=== PATIENT | male | born 1985 | race Caucasian/White ===

== ENCOUNTER 2024-12-14 09:46 | Outpatient (REF) | payer MEDICAID, SELFPAY ==
--- OUTSIDE RECORDS SUMMARY | 2024-12-13 11:00 | XMS_ITS | Encounter Summary ---
Author Organization [employer] Address [address] [facility] 7t [place] [address] Care Team Providers Care Art Preparator Name Role Phone Vicki Yañez Primary Care Provider [phone] Mohamud Quigley RN Unavailable [phone] Stephanie Yen Unavailable Reason for Visit * Reason Comments Follow-up Encounter Details Date Type Department Care Team ([facility] st Contact Info) Description 12/13/2024 11:00 AM EDT Office Visit [facility] MED[facility]INE [address] [place], [place] [phone] Vicki Yañez FNP [address] [place], [place] [phone] Encounter for immunization Social History Tobacco Use Types Packs/Day Years Used Date Smoking Tobacco: Some Days Cigarettes Passive Smoke Exposure: Current Smokeless Tobacco: Current Alcohol Use Standard Drinks/Week Comments Not Asked 0 (1 standard drink = 0.6 oz pur e alcohol) 4 cans of bear per day Alcohol Answer Date Recorded How often do you have a drink containing alcohol ? 3 07/19/2024 How many drinks containing a lcohol do you have on a typical day when you are drinking? 0 07/19/2024 Frequency of Binge Drinking Not on file 09/2024 Depression Answer Date Recorded Patient Health Questionnaire-9 Score 19 08/21/2024 Patient Health Questionnaire-9 Score 08/21/2024 Last PHQ-9: Questionnaire Data Not on file 0 08/21/2024 Housing Stability Answer Date Recorded What is your housing situation today? I have jose r [place]wick 07/19/[address] you li ve. Do you have problems with any of the following? None of the above 07/19/2024 Food Insecurity Answer Date Recorded Within the past 12 months, y ou worried that your food would run out before you got money to buy more: Sometimes True 2024 Within the past 12 months,th e food you bought just didn't last and you didn't have enough money to get more: Sometimes True 09/05/2024 Transportation Answer Date Recorded In the past 12 months, has l ack of transportation kept you from medical appts, meetings, work or from getting things needed for daily living? Yes, it has kept me from medical appointments or getting medications. 09/05/2024 Intimate Partner Violence Answer Date R ecorded Within the last year, have y ou been afraid of your partner or ex-partner? 2 11/06/2024 Within the last year, have y ou been humiliated or emotionally abused in other ways by your partner or ex-partner? 2 Within the last year, have y ou been kicked, hit, slapped, or otherwise physically hurt by your partner or ex-partner? 2 11/06/2024 Within the last year, have y ou been raped or forced to have any kind of sexual activity by your partner or ex-partner? 2 11/06/2024 Utilities Answer Date Recorded In the past 12 months, has t he electric, gas, oil or water company threatened to shut off services in your home? No 07/19/2024 Depression Answer Date Recorded Patient Health Questionnaire-2 Score 4 08/21/2024 Internet Access Answer Date Recorded Internet Access Q1 Yes 07/19/2024 Internet Access Q2 Not on file 07/19/2024 Sex and Gender Information Value Date Recorded Sex Assigned at Male 07/14/2024 8:52 AM EDT Legal Sex Male 8:50 AM EDT Gender Identity Male 07/14/2024 8:52 AM EDT Sexual Orientation Don't know 07/14/2024 8: 52 AM EDT documented as of this encounter Last Filed Vital Signs Vital Sign Reading Time Taken Comments Blood Pressure 128/88 12/13/2024 11:14 AM EDT Pulse 70 12/13/2024 10:59 AM EDT Temperature - - Respiratory Rate 20 12/13/2024 10:59 AM EDT Oxygen Saturation 98% 12/13/2024 10:59 AM EDT Inhaled Oxygen Concentration - - Weight 98.2 kg (216 lb 6.4 oz) 12/13/2024 10:59 AM EDT Height 170.2 cm (5' 7 ) 12/13/2024 10:59 AM EDT Body Mass Index 33.89 12/13/2024 10:59 AM EDT documented in this encounter Plan of Treatment Not on file documented as of this encounter Visit Diagnoses Diagnosis Encounter for immunization documented in this encounter Additional Health Concerns Assessment Noted Time PHQ-9 Depression Total Score: 19 025 2:46 PM EDT documented as of this encounter Care Teams Art Preparator Relationship Specialty Start Date End Date Vicki Yañez FNP [address] [place] [id number] PCP - General Family Medicine 07/19/24 Mohamud Quigley, CLAYTON [address] [place] [address] Registered Nurse Family Medicine 09/05/24 Stephanie Yen 09/05/24 documented as of this encounter
--- OUTSIDE RECORDS SUMMARY | 2024-12-14 10:59 | XMS_ITS ---
Author Organization [employer] Address [address] [facility] [address] [place] [address] Care Team Providers Care Group Fitness Department Head Name Role Phone Otilio Vicki KOLBY Primary Care Provider [phone] Mohamud Quigley RN Unavailable [phone] Stephanie Yen Unavailable CHW Complex Status:Enrolled (Active) Start date:09/05/2024 Enrollment date:09/05/2024 Enrollment reason:Referred by provider Overview Provider Referral ( Aneta Chew) This patient might benefit from care management services. During IBH Consult Maxime presenting with depressed mood, Tearful, crying spells , hopelessness, irritable mood, loss of interests/pleasure , sense of isolation/loneliness , isolating, changes in sleep difficulty falling asleep, psychomotor retardation, fatigue/loss of energy, inappropriate/excessive guilt , indecisiveness, thought of harming himself; for a period of 0-6 mo, for most or all symptoms in the context of unable to identify significant stressors. Patient was seen for behavioral health follow up due to severe depressive symptoms and intermittent self-harm thoughts, particularly when is alone or feeling isolated. Reports persistent sadness, fatigue and insomnia about a month. Denies intent or plan to harm self, but acknowledges passive thoughts of self-harm as response to emotional distress and loneliness. Patient has a diagnosis of cerebral palsy, which contributes to social isolation, reduced independence, and physical limitations. Denies history of suicide attempts but acknowledges emotional dysregulation. Patient is accompanied by his father during brief encounter. On 08/19/24 patient visited [facility] for short term or acute insomnia. Per previous encounter on 08/21/24: Pt requested intervention due to experiencing intrusive thoughts of self-harm. Pt was in his house accompanied by his dad. Pt reports feeling like hurting himself when he is alone. No triggers associated with presentation of sxs per his report. Pt will request evaluation from crisis [facility] / [facility]. I provided contact information. Placed pt on 7 days crisis alert. Pt agreed with the plan. Plan: 1. Will follow up with PCP, specialist as scheduled, Care management for additional support in regards of disability support services, adaptive technology if possible. 2. Will follow up with [facility] as of today for psychotherapy and psychiatry. Recommended visit [address] [place] [address] site for same day care if needed. 3. Will follow up with referral to partial hospitalization for psychiatry evaluation if needed. 4. Will contact [facility], help line, visit ER when needed if symptoms worsen. Case Team Name Relationship Phone Stephanie Yen(Responsible Staff) [phone] Continued Care and Services Coordination
--- OUTSIDE RECORDS SUMMARY | 2024-12-14 10:59 | XMS_ITS | Encounter Summary ---
Author Organization [employer] Address [address] 7[address] [place] [address] Care Team Providers Care Child And Adolescent Psychologist Name Role Phone Vicki Yañez PSYCHOLOGY CLINICIAN Primary Care Provider [phone] Mohamud Quigley RN Unavailable [phone] Stephanie Yen Unavailable Encounter Details Date Type Department Care Team (Latest Contact Info) Description 12/13/2024 Travel Social History Tobacco Use Types Packs/Day Years [...] Score 19 08/21/2024 Patient Health Questionnaire-9 Score 19 08/21/2024 Last PHQ-9: Questionnaire Data Not on [...] the past 12 months, has t he [employer], gas, oil or water company threatened to [...] AM EDT documented as of this encounter Plan of Treatment Not on file documented as of this encounter Visit Diagnoses Not on filedocumented in this encounter Additional Health Concerns Assessment Noted Time PHQ-9 Depression Total Score: 19 025 2:46 PM EDT documented as of this encounter Care Teams Child And Adolescent Psychologist Relationship Specialty Start Date End Date Vicki Yañez FNP [address] [place] [address] PCP - General Family Medicine 07/19/24 Mohamud Quigley, CLAYTON [address] [place] [address] LUIS MANUEL Francois [address] Registered Nurse Family Medicine 09/05/24 Stephanie Yen 09/05/24 documented as of this encounter
--- OUTSIDE RECORDS SUMMARY | 2024-12-14 10:59 | XMS_ITS | Clinical Summary ---
Author Organization [facility] [employer] [facility] ity Address [address] [place] [address] Care Team Providers Care Armored Transport Service Manager Name Role Phone Unavailable Primary Care Provider Unavailabl e Social History Tobacco Use Types Packs/Day Years Used Date Smoking Tobacco: Never Assessed Sex and Gender Information Value Date Recorded Sex Assigned at Not on file Legal Sex Male 1:34 AM EST Gender Identity Not on file Sexual Orientation Not on file Plan of Treatment Health Maintenance Due Date Last Done Comments DTaP,Tdap,and Td Vaccines (1 - Tdap) 2002 Hepatitis B Vaccines (1 of 3 - 19+ 3-dose series) 2002 HPV Vaccines (1 - 3-dose SCD M series) 2010 Depression Screening 03/15/2024 COVID-19 Vaccine (1 - 2023-2 5 season) 2024 Influenza Vaccine (#1) 2024 RSV Immunization Adult Patie nts (1 - 1-dose 75+ series) 2058 HIB Vaccines Aged Out No longer eligi ble based on patient's age to complete this topic Hepatitis A Vaccines Aged Out No long er eligible based on patient's age to complete this topic IPV Vaccines Aged Out No longer eligi ble based on patient's age to complete this topic MMR Vaccines Aged Out No longer eligi ble based on patient's age to complete this topic Meningococcal ACWY Vaccine Aged Out N o longer eligible based on patient's age to complete this topic Meningococcal B Vaccine Aged Out No l onger eligible based on patient's age to complete this topic Pneumococcal Vaccine: Pediat rics (0 to 5 Years) and At-Risk Patients (6 to 49 Years) Aged Out No longer eligible b ased on patient's age to complete this topic RSV Immunization Patients Un loretta 20 months Aged Out No longer eligible b ased on patient's age to complete this topic Varicella Vaccines Aged Out No longer eligible based on patient's age to complete this topic
--- OUTSIDE RECORDS SUMMARY | 2024-12-14 10:59 | XMS_ITS | Encounter Summary ---
Author Organization [employer] Address [address] [facility] 7t [place] [address] Care Team Providers Care Supervisor Winding Department Name Role Phone Vicki Yañez Primary Care Provider [phone] Mohamud Quigley RN Unavailable [phone] Stephanie Yen Unavailable Reason for Visit * Reason Comments [facility] outreach Encounter Details Date Type Department Care Team (Latest Contact Info) Description 12/12/2024 Patient Outreach [facility] [address] [place] [address] Vicki Yañez FNP [address] [place] [address] Care Coordination (C3 KEERTHI Yen telephone call outreach) Social History Tobacco Use Types Packs/Day Years [...] AM EDT documented as of this encounter Progress Notes * Stephanie Yen - 12/12/2024 1:48 PM EDT CHW Stephanie Yen placed outbound call to patient introducing herself from [facility] CM Department, in regards to remind patient of appt for 12/13/24 @ 11:00 AM. Patient's name and was confirmed. Patient is aware and confirmed will be available and has no barriers on attending this appointment. Patient verbalized understanding and agrees with plan. documented in this encounter Plan of Treatment Not on file documented as of this encounter Visit Diagnoses Not on filedocumented in this encounter Additional Health Concerns Assessment Noted Time PHQ-9 Depression Total Score: 19 025 2:46 PM EDT documented as of this encounter Care Teams Supervisor Winding Department Relationship Specialty Start Date End Date Vicki Yañez FNP [address] [place] [address] PCP - General Family Medicine 07/19/24 oMhamud Quigley, RN [address] [place] [address] Registered Nurse Family Medicine 09/05/24 Stephanie Yen 09/05/24 documented as of this encounter
--- OUTSIDE RECORDS SUMMARY | 2024-12-14 10:59 | XMS_ITS ---
Author Organization [employer] Address [address] [facility] [address] 7[address] [place] [address] Care Team Providers Care Wool Merchant Name Role Phone Otilio Vicki CHILD CARE WORKER Primary Care Provider [phone] Mohamud Quigley RN Unavailable [phone] Stephanie Yen Unavailable CM Complex Status:Enrolled (Active) Start date:09/05/2024 Enrollment date:11/06/2024 Enrollment reason:Referred by provider Overview Provider Referral [...] during brief encounter. On 08/19/24 patient visited [facility] for short term or acute insomnia. Per [...] if possible. 2. Will follow up with [facility] as of today for psychotherapy and psychiatry. Recommended visit [address] [place] [address] site for same day care if needed. 3. Will follow up with referral to partial hospitalization for psychiatry evaluation if needed. 4. Will contact [facility], help line, visit ER when needed if symptoms worsen. Case Team Name Relationship Phone Mohamud Quigley RN(Responsible Staff) Registered N kurtis [phone] Continued Care and Services Coordination
--- OUTSIDE RECORDS SUMMARY | 2024-12-14 10:59 | XMS_ITS | Encounter Summary ---
Author Organization [employer] Address [address] [facility] 7t [place] [address] Care Team Providers Care Technical Buyer Name Role Phone Vicki Yañez Primary Care Provider [phone] Mohamud Quigley RN Unavailable [phone] Stephanie Yen Unavailable Reason for Visit * Reason Comments Med Refill Encounter Details Date Type Department Care Team (Late st Contact Info) Description 12/07/2024 Refill [facility] [address] [place] [address] Vicki Yañez FNP [address] [place] [address] Social History Tobacco Use Types Packs/Day Years [...] documented as of this encounter Care Teams Technical Buyer Relationship Specialty Start Date End Date Vicki Yañez FNP [address] [place] [address] PCP - General Family Medicine 07/19/24 Mohamud Quigley, RN [address] [place] [address] Registered Nurse Family Medicine 09/05/24 Stephanie Yen 09/05/24 documented as of this encounter
--- OUTSIDE RECORDS SUMMARY | 2024-12-14 10:59 | XMS_ITS | Clinical Summary ---
Author Organization [employer] Address [address] [facility] 7t [place] [address] Care Team Providers Care Nurse Extern Name Role Phone Bharat Yañezupe MARGIN CLERK Primary Care Provider [phone] Mohamud Quigley RN Unavailable [phone] Stephanie Yen Unavailable Allergies No known active allergies Medications * This document contains information received from the source organization and may not represent a complete record from that organization. Blood Pressure kit 1 Units 2 times daily. 1 kit 5 Active melatonin 3 MG tablet Take 1 tablet (3 mg) by mouth at bedtime. 90 tablet 5 Active traZODone (Desyrel) 50 MG tablet TAKE 1 TABLET(50 MG) BY MOUTH AT BEDTIME 30 tablet 5 Active traZODone (Desyrel) 50 MG tablet Take 1 tablet (50 mg) by mouth at bedtime. 30 tablet 5 12/12/19 25 Discontinued Active Problems Problem Noted Date Diagnosed Date Exercise counseling 07/22/2024 Dietary counseling 07/22/2024 Severe episode of recurrent major depressive disorder, without psychotic features (CMS/HCC) 07/22/2024 Assessment & Plan (08/21/2024 4:38 PM EDT): During IBH Consult Maxime presenting with depressed mood, Tearful, crying spells , hopelessness, irritable mood, loss of interests/pleasure , sense of isolation/loneliness , isolating, changes in sleep difficulty falling asleep, psychomotor retardation, fatigue/loss of energy, inappropriate/excessive guilt , indecisiveness, thought of harming himself; for a period of 0-6 mo, for most or all symptoms in the context of unable to identify significant stressors. Pt requested intervention due to experiencing intrusive thoughts of self-harm. Pt was in his house accompanied by his dad. Pt reports feeling like hurting himself when he is alone. No triggers associated with presentation of sxs per his report. Pt will request evaluation from crisis [facility] / [facility]. I provided contact information. Placed pt on 7 days crisis alert. Pt agreed with the plan. Cerebral palsy 07/19/2024 Encounter for adult wellness visit 07/19/2024 Encounter for immunization 07/19/2024 Elevated blood pressure reading 07/19/2024 Encounters Date Type Department Care Team Description 12/13/2024 11:00 AM EDT Office Visit [address] [address] Vicki Yañez FNP Encounter for immunization 12/13/2024 Travel 12/12/2024 Patient Outreach [address] [address] Vicki Yañez FNP Care Coordination ([facility]3 [facility] Stephanie Yen telephone call outreach) 12/07/[address] [address] Vicki Yañez FNP 12/06/2024 Travel 12/04/2024 Patient Outreach [facility] [address] [place] [address] Vicki Yañez FNP Care Management ([facility]- follow up call # 1) 11/09/2024 1:30 PM EDT Office Visit [address] [address] Vicki Yañez FNP Insomnia, unspecified type (Primary Dx); Obesity (BMI 30.0-34.9); Anxiety 11/09/2024 Travel 11/07/2024 Travel 11/07/2024 Plan of Care Documentation [address] [address] 11/06/2024 Patient Outreach [address] [address] Vicki Yañez, MARGIN CLERK Care Management (C3CM- Initial assessment/enrollmen t) 11/03/2024 Patient Outreach [address] [address] Vicki Yañez, MARGIN CLERK Care Coordination (C3 -[facility] telephone call outreach) 10/16/2024 Patient Outreach [address] [address] Vicki Yañez MARGIN CLERK Care Coordination (C3 -[facility] telephone call outreach) 09/27/2024 Patient Outreach [address] [address] Vicki Yañez MARGIN CLERK Care Management (C3- Initial assessment/enrollmen t) 09/26/2024 Patient Outreach [address] [address] Vicki Yañez MARGIN CLERK Care Coordination (C3 -[facility] telephone call outreach) from Last 3 Months Immunizations Immunization Administration Dates Next Due Influenza, seasonal, injectable, preservative fr ee 12/13/2024 Pneumococcal Conjugate PCV 20 12/13/2024 Tdap 07/19/2024 Family History Medical History Relation Name Comments Diabetes Mother Relation Name Status Comments Mother Social History Tobacco Use Types Packs/Day Years Used Date Smoking Tobacco: Some Days Cigarettes Passive Smoke Exposure: Current Smokeless Tobacco: Current Tobacco Cessation:Ready to Q uit: Not Asked; Counseling Given: Not Answered Alcohol Use Standard Drinks/Week Comments Not Asked [...] Don't know 07/14/2024 8: 52 AM EDT Last Filed Vital Signs Vital Sign Reading Time Taken Comments Blood Pressure 128/88 12/13/2024 11:14 AM EDT Pulse 70 12/13/2024 10:59 AM EDT Temperature 37 C (98.6 F) 11/09/2024 1:28 PM EDT Respiratory Rate 20 12/13/2024 10:59 AM EDT Oxygen Saturation 98% 12/13/2024 10:59 AM EDT Inhaled Oxygen Concentration - - Weight 98.2 kg (216 lb 6.4 oz) 12/13/2024 10:59 AM EDT Height 170.2 cm (5' 7 ) 12/13/2024 10:59 AM EDT Body Mass Index 33.89 12/13/2024 10:59 AM EDT Plan of Treatment Health Maintenance Due Date Last Done Comments HIV Screening 1983 Lipid Panel 1983 Family Planning (PISQ) 1998 HPV Vaccines (1 - Male 3-dos e series) 1998 Hepatitis C Screening 2001 Hepatitis B Vaccines (1 of 3 - 19+ 3-dose series) 2002 COVID-19 Vaccine (1 - 2023-2 5 season) 2024 Depression Monitoring 02/20/2025 08/21/2024 , 08/21/2024 Alcohol/Substance Use Screening 07/19/2025 07/19/2024 SDOH Screening 09/05/2025 09/05/2024 Disability Screening 11/07/2025 11/07/2024 Tobacco Screening 12/13/2025 12/13/2024 Zoster Vaccines (1 of 2) 2033 DTaP/Tdap/Td Vaccines (2 - T d or Tdap) 07/19/2034 07/19/2024 RSV Patients and Patients Aged 60 years or older (1 - 1-dose 75+ series) 2058 Influenza Vaccine Completed 12/13/2024 Pneumococcal Vaccine: Pediatrics (0 to 5 Years) and At-Risk Patients (6 to 49) Years Completed 12/13/2024 HIB Vaccines Aged Out No longer eligi [...] patient's age to complete this topic Meningococcal Vaccine Aged Out No amber chinedu eligible based on patient's age to complete this topic RSV under 20 months Aged Out No longe r eligible based on patient's age to complete this topic Rotavirus Vaccines Aged Out No longer eligible based on patient's age to complete this topic Insurance Care Teams Nurse Extern Relationship Specialty Start Date End Date Vicki Yañez FNP [address] [place] [address] PCP - General Family Medicine 07/19/24 Mohamud Quigley, CLAYTON [address] [place] [address] Registered Nurse Family Medicine 09/05/24 Stephanie Yen 09/05/24
[2024-12-14 11:46] LABS: MANUAL DIFF FLAG NO
[2024-12-14 11:59] LABS: Hematocrit 44.2 % (42.0-52.0); Hemoglobin 16.0 g/dl (14.0-18.0); Imm Gran Abs Auto 0.02 X10*3/uL (0.00-0.03); Imm Gran Pct Auto 0.2 % (0.0-0.4); Lymphocytes Absolute Auto 1.6 X10*3/uL (1.2-4.9); Mean Corpuscular HGB Conc 36.2 g/dl (31.0-36.0); Mean Corpuscular Hemoglobin 33.8 pg (27.0-33.0); Mean Corpuscular Volume 93.4 fL (80.0-98.0); NRBC Abs Auto 0.000 X10*3/uL (0.0-0.012); NRBC Pct Auto 0.0 /100WBC (0.0-0.2); Platelet Count 269 X10*3/uL (160-400); Red Blood Count 4.73 X10*6/uL (4.60-5.80); White Blood Count 8.3 X10*3/uL (4.8-10.8)
[2024-12-14 12:20] LABS: Alanine Aminotransferase 33 U/L (0-40); Albumin Level 4.9 g/dL (3.5-5.0); Alkaline Phosphatase 66 U/L (39-117); Anion Gap 13 (12-20); Aspartate Amino Transferase 29 U/L (5-37); Blood Urea Nitrogen 19 mg/dL (9-16); Calcium 9.4 mg/dL (8.4-10.2); Carbon Dioxide 26 mmol/L (22-29); Chloride 104 mmol/L (96-108); Cholesterol 250 mg/dL (<200); Estimated Glomerular Filt Rate > 60; HDL Cholesterol 52 mg/dL (>40); Potassium 4.0 mmol/L (3.3-5.1); Sodium 139 mmol/L (135-145); Total Protein 7.8 g/dL (6.5-8.0); Triglycerides 223 mg/dL (<150)
[2024-12-14 12:34] LABS: HBS Num1 0.00 mIU/mL (0-7.99); HBc Num1 0.08 S/CO (0.00-0.79); HBsAGNum1 0.41 S/CO (0.00-0.99); HIV Num 1 0.06 S/CO (0.00-0.99); Hepatitis B Surface Antigen Negative (Negative); ~Hepatitis B Surface Antibody NONREACTIVE (Nonreactive)
== END 2024-12-14 09:47 | disposition home or self-care (01) ==
LOC: HO.HHCL 09:46
PROVIDERS: PCP Nurse Practitioner Family; Visit Provider Nurse Practitioner Family
DX: Z00.00 Encounter for general adult medical examination without abnormal findings (principal); Z11.4 Encounter for screening for human immunodeficiency virus [HIV]; Z11.59 Encounter for screening for other viral diseases
CPT/HCPCS: 36415; 80053; 80061; 83036; 85025; 86704; 86706; 87340; 87389